=== PATIENT | male | born 1995 | race Caucasian/White ===

== ENCOUNTER 2018-07-05 16:03 | Inpatient (IN) ==
[2018-07-05] MEDS ORDERED: fentaNYL Citrate Inj 100 MCG/2 ML Ampul ONE ×2 (16:05→19:33)
[2018-07-05] MEDS ORDERED: ceFAZolin 2 GM Premix Inj 2 GM/50 ML PIGGYBACK IV.SIG ONE ×2 (16:05→17:32)
[2018-07-05] MEDS ORDERED: Diphtheria/Tetanus/Pertussis Vaccine Inj 0.5 ML Syringe IM ONE (16:06)
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
[2018-07-05 16:35] LABS: Baso # (Auto) 0.1 th/mm3 (0.0-0.2); Baso % (Auto) 0.8 % (0.0-2.0); Eos # (Auto) 0.1 th/mm3 (0.0-0.4); Eos % (Auto) 0.7 % (0.0-4.0); Hematocrit 44.9 % (39.0-51.0); Hemoglobin 15.8 gm/dL (13.0-17.0); Lymph # (Auto) 2.4 th/mm3 (1.0-4.8); Lymph % (Auto) 32.2 % (9.0-44.0); Mean Corpuscular HGB Conc 35.3 % (32.0-36.0); Mean Corpuscular Hemoglobin 30.4 pg (27.0-34.0); Mean Platelet Volume 9.8 fL (7.0-11.0); Mono # (Auto) 1.1 th/mm3 (0.0-0.9); Mono % (Auto) 14.2 % (0.0-8.0); Neut # (Auto) 3.9 th/mm3 (1.8-7.7); Neut % (Auto) 52.1 % (16.0-70.0); Platelet Count 250 th/mm3 (150-450); Red Blood Count 5.22 mil/mm3 (4.50-5.90); Red Cell Distribution Width 13.7 % (11.6-17.2); White Blood Count 7.5 th/mm3 (4.0-11.0)
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
[2018-07-05 16:44] LABS: Activated Partial Thrombo Time 24.4 sec (24.3-30.1); INR 1.2 Ratio
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
[2018-07-05 17:29] LABS: ABG Base Excess -1.1 mmol/L (-2-2); ABG PCO2 33 mmHg (38-42); ABG PO2 234 mmHG (61-120)
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
[2018-07-05 17:37] LABS: Baso % (Auto) 0.3 % (0.0-2.0); Eos % (Auto) 0.2 % (0.0-4.0); Hematocrit 40.3 % (39.0-51.0); Hemoglobin 13.6 gm/dL (13.0-17.0); Lymph # (Auto) 0.6 th/mm3 (1.0-4.8); Lymph % (Auto) 7.9 % (9.0-44.0); Mean Corpuscular HGB Conc 33.9 % (32.0-36.0); Mean Corpuscular Hemoglobin 29.2 pg (27.0-34.0); Mean Corpuscular Volume 86.3 fL (80.0-100.0); Mean Platelet Volume 9.3 fL (7.0-11.0); Mono # (Auto) 0.6 th/mm3 (0.0-0.9); Mono % (Auto) 8.1 % (0.0-8.0); Neut # (Auto) 6.4 th/mm3 (1.8-7.7); Neut % (Auto) 83.5 % (16.0-70.0); Platelet Count 157 th/mm3 (150-450); Red Blood Count 4.67 mil/mm3 (4.50-5.90); Red Cell Distribution Width 13.4 % (11.6-17.2); White Blood Count 7.7 th/mm3 (4.0-11.0)
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
[2018-07-05] MEDS ORDERED: HYDROmorphone PF Inj 0.5 MG/0.5 ML Syringe IV.PUSH PRN (18:30)
[2018-07-05] MEDS ORDERED: Neomycin/Polymyxin G.U. Irrigant 1 ML Ampul ONE (18:59)
[2018-07-05] MEDS ORDERED: Dexmedetomidine Inj 200 MCG/2 ML Vial ONE (19:32)
[2018-07-05] MEDS ORDERED: Sugammadex Inj 200 MG/2 ML Vial IV.PUSH ONE (20:11)
--- NOTE | 2018-07-05 20:51 | P.OP ---
- Preoperative Diagnosis (1) Amputation of left ring finger (2) Closed fracture of proximal phalanx of left ring finger (3) Displaced fracture of shaft of fourth metacarpal bone, left hand, initial encounter for closed fracture (4) Displaced fracture of neck of fifth metacarpal bone, left hand, initial encounter for closed fracture - Postoperative Diagnosis (1) Amputation of left ring finger (2) Closed fracture of proximal phalanx of left ring finger (3) Displaced fracture of neck of fifth metacarpal bone, left hand, initial encounter for closed fracture (4) Displaced fracture of shaft of fourth metacarpal bone, left hand, initial encounter for closed fracture Date of procedure: 07/05/18 Procedure: wash debridement revision amputation through middle phalanx left ring finger closed reduction and internal fixation proximal phalanx left ring finger open reduction internal fixation fourth metacarpal shaft left hand closed reduction and internal fixation fracture fifth metacarpal neck left hand Anesthesia: GETA Surgeon: Neo Valdivia MD Estimated blood loss (mL): 10 Tourniquet time (min): 84 Pathology: none sent Operation and Findings: amputation though distal part of the middle phalanx/DIP joint with open wound left ring finger comminuted displaced fracture proximal phalanx left ring finger displaced fourth metacarpal shaft fracture left hand displaced fifth metacarpal neck fracture left hand
[2018-07-05] MEDS ORDERED: Morphine Inj 4 MG/ML Vial ONE (21:02)
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
[2018-07-05] MEDS: Docusate Sodium 100 MG Capsule PO SCH (22:15)
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
[2018-07-05] MEDS ORDERED: *morphine SULFATE 4 MG/ML PERIprocedure ONLY ONE (22:33)
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
[2018-07-06] MEDS ORDERED: Chlorhexidine Gluconate 2% 1 Pack (2 Cloths) TOPICAL ONE (00:45)
[2018-07-06] MEDS ORDERED: Sodium Chlor 0.9% Inj 500 ML IV.SIG SCH (01:00)
[2018-07-06] MEDS: HYDROmorphone PF Inj 2 MG/ML Vial IV.PUSH PRN ×5 (02:02→19:53)
[2018-07-06] MEDS ORDERED: Chlorhexidine Gluconate 2% 1 Pack (2 Cloths) TOPICAL SCH (04:00)
[2018-07-06] MEDS ORDERED: Chlorhexidine Gluconate 2% 1 Pack (2 Cloths) TOPICAL PRN (04:00)
[2018-07-06 05:59] LABS: Baso % (Auto) 0.1 % (0.0-2.0); Hematocrit 38.4 % (39.0-51.0); Hemoglobin 12.8 gm/dL (13.0-17.0); Lymph # (Auto) 0.7 th/mm3 (1.0-4.8); Lymph % (Auto) 6.2 % (9.0-44.0); Mean Corpuscular HGB Conc 33.3 % (32.0-36.0); Mean Corpuscular Hemoglobin 29.3 pg (27.0-34.0); Mean Platelet Volume 9.6 fL (7.0-11.0); Mono # (Auto) 1.4 th/mm3 (0.0-0.9); Neut # (Auto) 8.4 th/mm3 (1.8-7.7); Neut % (Auto) 80.7 % (16.0-70.0); Platelet Count 187 th/mm3 (150-450); Red Blood Count 4.36 mil/mm3 (4.50-5.90); Red Cell Distribution Width 13.5 % (11.6-17.2); White Blood Count 10.5 th/mm3 (4.0-11.0)
[2018-07-06 06:21] LABS: Anion Gap 7 meq/L (5-15); Blood Urea Nitrogen 6 mg/dL (7-18); Calcium 7.3 mg/dL (8.5-10.1); Carbon Dioxide 27.1 meq/L (21.0-32.0); Chloride 106 meq/L (98-107); Glomerular Filtration Rate Greater Than 89 mL/min (>89); Glucose,Random 129 mg/dL (74-106); Potassium 3.6 meq/L (3.5-5.1); Sodium 140 meq/L (136-145)
[2018-07-06 06:33] LABS: Creatine Kinase 1299 U/L (39-308); Total Protein 5.8 g/dL (6.4-8.2)
[2018-07-06 06:53] LABS: CKMB Percent 0.2 % (0.0-4.0); Creatine Kinase MB 2.3 ng/mL (0.5-3.6)
--- NOTE | 2018-07-06 07:36 | P.CONOP ---
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 for repeat irrigation and debridement. Patient will likely need multiple surgeries. He may need skin grafting as well. The risk and benefits of surgery were discussed in depth with patient. Informed consent was obtained. Operative site was marked. A mid-level provider in my office (nurse practitioner or physician junior assistant manager) may see this patient on follow-up visits and continue to implement the objectives of this plan including: Starting or adjusting medications, injections , cast application, orthotics, brace application, physical therapy, radiological studies (including x-ray, MRI, CT, ultrasound, bone scan), vascular studies, neurologic studies, specialist consultation, and proceeding with surgical management, as appropriate. <Shemar Garcia - Last Filed: 07/06/18 12:52>
[2018-07-06] MEDS: Docusate Sodium 100 MG Capsule PO SCH (08:52)
[2018-07-06] MEDS ORDERED: Morphine Sulfate Inj 2 MG/ML Vial ONE (11:47)
[2018-07-06] MEDS ORDERED: Lidocaine PF 1% Inj 5 ML Syringe OTHER ONE (12:15)
[2018-07-06] MEDS ORDERED: Esmolol Bolus Inj 100 MG/10 ML Vial IV.PUSH ONE (12:15)
[2018-07-06] MEDS ORDERED: Morphine Inj 4 MG/ML Vial IV.PUSH PRN (12:54)
[2018-07-06] MEDS ORDERED: Post-op Orders (for Pharmacy) OTHER STA (12:54)
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
[2018-07-06] MEDS ORDERED: Morphine Inj 4 MG/ML Vial ONE (13:21)
[2018-07-06] MEDS ORDERED: fentaNYL Citrate Inj 100 MCG/2 ML Ampul ONE (13:21)
--- NOTE | 2018-07-06 13:31 | P.PNOP ---
Subjective Interval history: POD 0 s/p I&D with vac application left thigh wound stable in PACU Physical Exam Vital signs: Vital Signs 07/05/18 16:24 07/05/18 17:10 07/05/18 20:58 Temperature 98.2 F 97.8 F Pulse Rate 100 H 98 H Respiratory Rate 22 19 Blood Pressure 126/80 Pulse Oximetry 100 100 100 07/05/18 21:00 07/05/18 21:15 07/05/18 21:30 Temperature Pulse Rate 89 80 76 Respiratory Rate 14 13 15 Blood Pressure 109/54 L 113/57 L 118/56 L Pulse Oximetry 100 100 100 07/05/18 21:45 07/05/18 22:00 07/05/18 22:15 Temperature Pulse Rate 78 79 97 H Respiratory Rate 15 13 14 Blood Pressure 117/55 L 117/58 L 115/57 L Pulse Oximetry 100 100 100 07/05/18 22:30 07/05/18 22:38 07/05/18 22:45 Temperature Pulse Rate 89 94 H Respiratory Rate 16 16 14 Blood Pressure 114/55 L 119/56 L Pulse Oximetry 97 96 07/05/18 23:13 07/06/18 00:00 07/06/18 02:32 Temperature 98.5 F Pulse Rate 97 H 86 Respiratory Rate 17 16 Blood Pressure 115/58 L Pulse Oximetry 98 07/06/18 03:09 07/06/18 04:00 07/06/18 07:53 Temperature 98.1 F Pulse Rate 81 Respiratory Rate 17 18 18 Blood Pressure 128/59 L Pulse Oximetry 100 07/06/18 08:00 07/06/18 09:16 07/06/18 10:26 Temperature 98.1 F Pulse Rate 114 H Respiratory Rate 16 18 Blood Pressure 123/56 L Pulse Oximetry 93 L 96 Intake & Output 07/05/18 07/06/18 07/06/18 18:59 06:59 18:59 Intake Total 50 / 50 5150 / 5150 2100 / 2100 Output Total 1850 / 1850 60 / 60 Balance 50 / 50 3300 / 3300 2039 / 2039 Weight 67 kg 67.9 kg Intake: IV 50 / 50 100 / 100 1100 / 1100 LR 1000 mL Inj 1,000 ML @ 100 1000 / 1000 mls/hr IV.CONT .Q10H [facility] Rx#: [id number] Ancef 2 GM Premix Inj 2 gm In 50 / 50 50 ml @ 100 mls/hr IV.SIG ONCE ONE Rx#:[id number] Ancef Inj 1,000 MG In NS Inj 100 / 100 100 / 100 100 ML @ 200 mls/hr IV.SIG Q8H [facility] Rx#:[id number] Oral 50 / 50 Anesthesia Amount 5000 / 5000 1000 / 1000 Output: Estimated Blood Loss 150 / 150 10 / 10 Urine Amount (Catheter) 1700 / 1700 50 / 50 Indwelling Urethral Catheter 1700 / 1700 50 / 50 Other: Date of Last Bowel Movement 07/04/18 Narrative: LLE: +vac. good seal. nvi distally - Urinary Catheter Management Indwelling Urethral Catheter Cath placed during this visit: yes Reason for continuing: Hourly intake/output Insertion date: 07/05/18 Insertion time: 17:00 Results - Labs CBC & Chem 7: 07/06/18 05:10 07/06/18 05:10 Laboratory Results - last 24 hr 07/05/18 07/05/18 07/05/18 16:07 16:07 16:07 WBC 7.5 RBC 5.22 Hgb 15.8 POC Hgb (Calc) 15.3 Hct 44.9 POC Hct 45.0 MCV 86.0 MCH 30.4 MCHC 35.3 RDW 13.7 Plt Count 250 MPV 9.8 Neut % (Auto) 52.1 Lymph % (Auto) 32.2 [place]oke % (Auto) 14.2 H Eos % (Auto) 0.7 Baso % (Auto) 0.8 Neut # (Auto) 3.9 Lymph # (Auto) 2.4 [place] # (Auto) 1.1 H Eos # (Auto) 0.1 Baso # (Auto) 0.1 WBC Differential . Differential Comment Auto diff final PT 12.0 H INR 1.2 APTT 24.4 Puncture Site Patient Temperature O2 Saturation ABG pH ABG pCO2 ABG pO2 ABG HCO3 ABG O2 Content ABG Base Excess ABG Methemoglobin Hemoglobin Carboxyhemoglobin O2 Delivery Device Critical Value POC Sodium 142 Sodium POC Potassium 4.5 Potassium POC Chloride 106 Chloride Carbon Dioxide Anion Gap POC BUN 12 BUN Creatinine POC Creatinine 0.8 Estimated GFR POC Glucose 133 H Random Glucose Calcium Prot Corrected Calcium Total Creatine Kinase CK-MB (CK-2) CK-MB (CK-2) % Total Protein Blood Type Antibody Screen MTS Gel Crossmatch Bld Prod Order Comment 07/05/18 07/05/18 07/05/18 16:07 17:12 17:15 WBC 7.7 RBC 4.67 Hgb 13.6 D POC Hgb (Calc) Hct 40.3 POC Hct MCV 86.3 MCH 29.2 MCHC 33.9 RDW 13.4 Plt Count 157 D MPV 9.3 Neut % (Auto) 83.5 H Lymph % (Auto) 7.9 L [place] % (Auto) 8.1 H Eos % (Auto) 0.2 Baso % (Auto) 0.3 Neut # (Auto) 6.4 Lymph # (Auto) 0.6 L [place] # (Auto) 0.6 Eos # (Auto) 0.0 Baso # (Auto) 0.0 WBC Differential . Differential Comment Auto diff final PT INR APTT Puncture Site Not Reportable Patient Temperature 98.6 O2 Saturation 97 ABG pH 7.45 H ABG pCO2 33 L ABG pO2 234 H ABG HCO3 22 ABG O2 Content 19.0 ABG Base Excess -1.1 ABG Methemoglobin 1.4 Hemoglobin 13.5 Carboxyhemoglobin 0.8 O2 Delivery Device O.r. abg Critical Value No POC Sodium Sodium POC Potassium Potassium POC Chloride Chloride Carbon Dioxide Anion Gap POC BUN BUN Creatinine POC Creatinine Estimated GFR POC Glucose Random Glucose Calcium Prot Corrected Calcium Total Creatine Kinase CK-MB (CK-2) CK-MB (CK-2) % Total Protein Blood Type O Positive Antibody Screen Negative MTS Gel Crossmatch Bld Prod Order Comment 07/05/18 07/06/18 07/06/18 17:21 05:10 05:10 WBC 10.5 RBC 4.36 L Hgb 12.8 L POC Hgb (Calc) Hct 38.4 L POC Hct MCV 88.0 MCH 29.3 MCHC 33.3 RDW 13.5 Plt Count 187 MPV 9.6 Neut % (Auto) 80.7 H Lymph % (Auto) 6.2 L [place] % (Auto) 13.0 H Eos % (Auto) 0.0 Baso % (Auto) 0.1 Neut # (Auto) 8.4 H Lymph # (Auto) 0.7 L [place] # (Auto) 1.4 H Eos # (Auto) 0.0 Baso # (Auto) 0.0 WBC Differential . Differential Comment Auto diff final PT INR APTT Puncture Site Patient Temperature O2 Saturation ABG pH ABG pCO2 ABG pO2 ABG HCO3 ABG O2 Content ABG Base Excess ABG Methemoglobin Hemoglobin Carboxyhemoglobin O2 Delivery Device Critical Value POC Sodium Sodium 140 POC Potassium Potassium 3.6 POC Chloride Chloride 106 Carbon Dioxide 27.1 Anion Gap 7 POC BUN BUN 6 L Creatinine 0.71 POC Creatinine Estimated GFR Greater than 89 POC Glucose Random Glucose 129 H Calcium 7.3 L* Prot Corrected Calcium 8.0 L Total Creatine Kinase 1299 H CK-MB (CK-2) 2.3 CK-MB (CK-2) % 0.2 Total Protein 5.8 L Blood Type Antibody Screen MTS Gel Crossmatch See Detail Bld Prod Order Comment - Imaging Impressions Chest X-Ray 07/05/18 16:06 CONCLUSION: Negative examination. No evidence of acute cardiopulmonary process or traumatic bony injury. Pelvis X-Ray 07/05/18 16:06 CONCLUSION: No acute bony abnormality. Subcutaneous air in the left inguinal and proximal thigh region. Femur X-Ray 07/05/18 16:07 CONCLUSION: Tibia/Fibula X-Ray 07/05/18 16:07 CONCLUSION: No acute fracture of the tibia or fibula. Abdomen/Pelvis CT 07/05/18 16:08 CONCLUSION: 1. Large soft tissue contusion involving the left upper thigh with extension superiorly and medially to the base of the perineum. 2. No acute fracture identified. 3. No findings to indicate intra-abdominal trauma. Cervical Spine CT 07/05/18 16:08 CONCLUSION: 1. No acute fracture of the cervical spine identified. Chest CT 07/05/18 16:08 CONCLUSION: 1. Negative for acute traumatic injury within the thorax. Face CT 07/05/18 16:08 CONCLUSION: 1. No evidence of acute soft tissue or bony trauma. 2. Mild mucosal thickening in the paranasal sinuses. Head CT 07/05/18 16:08 CONCLUSION: 1. No acute intracranial abnormality. . Lumbar Spine CT 07/05/18 16:08 CONCLUSION: Negative CT Lumbar Spine with contrast. No evidence of acute soft tissue or bony trauma. Thoracic Spine CT 07/05/18 16:08 CONCLUSION: 1. Negative CT Thoracic Spine with contrast. 2. No evidence of acute bony or soft tissue trauma Aorta w/Runoff CTA 07/05/18 16:15 CONCLUSION: 1. Examination of the left leg demonstrates a large soft tissue defect however I see no evidence of vascular injury involving the superficial femoral artery throughout this area. The inflow and runoff to the left lower extremity is adequate. 2. The inflow and runoff to the right lower extremity is within normal limits. Hand X-Ray 07/05/18 16:15 CONCLUSION: Fractures of the fourth and fifth metacarpals and fourth finger as above with questionable partial amputation fourth finger. Assessment and Plan - Problem List (1) Laceration Status: Acute (2) Fracture of hand Code(s): S62.90XA - Unspecified fracture of unspecified wrist and hand, initial encounter for closed fracture Status: Acute (3) Amputation of left ring finger Code(s): S68.115A - Complete traumatic metacarpophalangeal amputation of left ring finger, initial encounter Status: Acute (4) Closed fracture of proximal phalanx of left ring finger Code(s): S62.615A - Displaced fracture of proximal phalanx of left ring finger, initial encounter for closed fracture Status: Acute (5) Displaced fracture of shaft of fourth metacarpal bone, left hand, initial encounter for closed fracture Code(s): S62.325A - Displaced fracture of shaft of fourth metacarpal bone, left hand, initial encounter for closed fracture Status: Acute (6) Displaced fracture of neck of fifth metacarpal bone, left hand, initial encounter for closed fracture Code(s): S62.337A - Displaced fracture of neck of fifth metacarpal bone, left hand, initial encounter for closed fracture Status: Acute - Assessment and Plan 1) traumatic Left Thigh Laceration s/p I&D with vac application - POD 0 -NWB -maintain vac at all times -VAC SETTINGS: 125mmHg, 3:1 -will plan for repeat I&D and possible wound closure next week
[2018-07-06] MEDS ORDERED: *morphine SULFATE 4 MG/ML PERIprocedure ONLY ONE ×3 (13:43→14:06)
[2018-07-06] MEDS ORDERED: Gentamicin/NS 80 mg Premix 100 ML IV.SIG SCH ×2 (14:30→15:00)
[2018-07-06] MEDS: ceFAZolin 2 GM/NS 100 ML IV; Q8H IV.SIG SCH ×2 (15:00)
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
[2018-07-06] MEDS ORDERED: ceFAZolin Inj 2,000 MG in Sodium Chlor 0.9% Inj 80 ML IV.SIG SCH (16:00)
--- NOTE | 2018-07-06 16:41 | P.PN ---
Subjective Interval history: complaint with limb elevation complains of pain denies any numbness Physical Exam Vital signs: Vital Signs 07/05/18 17:10 07/05/18 20:58 07/05/18 21:00 Temperature 98.2 F 97.8 F Pulse Rate 100 H 98 H 89 Respiratory Rate 22 19 14 Blood Pressure 126/80 109/54 L Pulse Oximetry 100 100 100 07/05/18 21:15 07/05/18 21:30 07/05/18 21:45 Temperature Pulse Rate 80 76 78 Respiratory Rate 13 15 15 Blood Pressure 113/57 L 118/56 L 117/55 L Pulse Oximetry 100 100 100 07/05/18 22:00 07/05/18 22:15 07/05/18 22:30 Temperature Pulse Rate 79 97 H 89 Respiratory Rate 13 14 16 Blood Pressure 117/58 L 115/57 L 114/55 L Pulse Oximetry 100 100 97 07/05/18 22:38 07/05/18 22:45 07/05/18 23:13 Temperature Pulse Rate 94 H 97 H Respiratory Rate 16 14 Blood Pressure 119/56 L Pulse Oximetry 96 07/06/18 00:00 07/06/18 02:32 07/06/18 03:09 Temperature 98.5 F Pulse Rate 86 Respiratory Rate 17 16 17 Blood Pressure 115/58 L Pulse Oximetry 98 07/06/18 04:00 07/06/18 07:53 07/06/18 08:00 Temperature 98.1 F 98.1 F Pulse Rate 81 114 H Respiratory Rate 18 18 16 Blood Pressure 128/59 L 123/56 L Pulse Oximetry 100 93 L 07/06/18 09:16 07/06/18 10:26 07/06/18 13:20 Temperature 99 F Pulse Rate 117 H Respiratory Rate 18 17 Blood Pressure 121/71 Pulse Oximetry 96 100 07/06/18 13:30 07/06/18 13:45 07/06/18 14:00 Temperature Pulse Rate 110 H 111 H 105 H Respiratory Rate 13 14 14 Blood Pressure 139/82 157/87 H 159/91 H Pulse Oximetry 100 100 100 07/06/18 14:10 07/06/18 14:30 07/06/18 15:01 Temperature 97.6 F 97.4 F L Pulse Rate 103 H 117 H Respiratory Rate 14 16 18 Blood Pressure 155/86 H 176/98 H Pulse Oximetry 100 100 07/06/18 16:00 Temperature 97.8 F Pulse Rate 118 H Respiratory Rate 16 Blood Pressure 165/81 H Pulse Oximetry 98 Intake & Output 07/05/18 07/06/18 07/06/18 18:59 06:59 18:59 Intake Total 50 / 50 5150 / 5150 2210 / 2210 Output Total 1850 / 1850 215 / 215 Balance 50 / 50 3300 / 3300 1994 Weight 67 kg 67.9 kg Intake: IV 50 / 50 100 / 100 1200 / 1200 LR 1000 mL Inj 1,000 ML @ 100 1000 / 1000 mls/hr IV.CONT .Q10H ABILIO Rx#: [id number] Ancef 2 GM Premix Inj 2 gm In 50 / 50 50 ml @ 100 mls/hr IV.SIG ONCE ONE Rx#:[id number] Ancef Inj 1,000 MG In NS Inj 100 / 100 100 / 100 100 ML @ 200 mls/hr IV.SIG Q8H ABILIO Rx#:[id number] Ancef Inj 2,000 MG In NS Inj 80 100 / 100 ML @ 200 mls/hr IV.SIG Q8H ABILIO Rx#:[id number] Oral 50 / 50 10 / 10 Anesthesia Amount 5000 / 5000 1000 / 1000 Output: Estimated Blood Loss 150 / 150 10 / 10 Urine Amount (Catheter) 1700 / 1700 200 / 200 Indwelling Urethral Catheter 1700 / 1700 200 / 200 Wound Vac Amount 5 / 5 Left Thigh 5 / 5 Other: Date of Last Bowel Movement 07/04/18 Narrative: left upper extremity: dressing and splint in place intact distal circulation and sensation able to wiggle his fingers, associated with pain - Urinary Catheter Management Indwelling Urethral Catheter Cath placed during this visit: yes Reason for continuing: Hourly intake/output Insertion date: 07/05/18 Insertion time: 17:00 Results - Labs CBC & Chem 7: 07/06/18 05:10 07/06/18 05:10 Laboratory Results - last 24 hr 07/05/18 07/05/18 07/05/18 16:07 16:07 16:07 WBC RBC Hgb POC Hgb (Calc) 15.3 Hct POC Hct 45.0 MCV MCH MCHC RDW Plt Count MPV Neut % (Auto) Lymph % (Auto) [place] % (Auto) Eos % (Auto) Baso % (Auto) Neut # (Auto) Lymph # (Auto) [place] # (Auto) Eos # (Auto) Baso # (Auto) WBC Differential Differential Comment PT 12.0 H INR 1.2 APTT 24.4 Puncture Site Patient Temperature O2 Saturation ABG pH ABG pCO2 ABG pO2 ABG HCO3 ABG O2 Content ABG Base Excess ABG Methemoglobin Hemoglobin Carboxyhemoglobin O2 Delivery Device Critical Value POC Sodium 142 Sodium POC Potassium 4.5 Potassium POC Chloride 106 Chloride Carbon Dioxide Anion Gap POC BUN 12 BUN Creatinine POC Creatinine 0.8 Estimated GFR POC Glucose 133 H Random Glucose Calcium Prot Corrected Calcium Total Creatine Kinase CK-MB (CK-2) CK-MB (CK-2) % Total Protein Blood Type O Positive Antibody Screen Negative MTS Gel Crossmatch Bld Prod Order Comment 07/05/18 07/05/18 07/05/18 17:12 17:15 17:21 WBC 7.7 RBC 4.67 Hgb 13.6 D POC Hgb (Calc) Hct 40.3 POC Hct MCV 86.3 MCH 29.2 MCHC 33.9 RDW 13.4 Plt Count 157 D MPV 9.3 Neut % (Auto) 83.5 H Lymph % (Auto) 7.9 L [place] % (Auto) 8.1 H Eos % (Auto) 0.2 Baso % (Auto) 0.3 Neut # (Auto) 6.4 Lymph # (Auto) 0.6 L [place] # (Auto) 0.6 Eos # (Auto) 0.0 Baso # (Auto) 0.0 WBC Differential . Differential Comment Auto diff final PT INR APTT Puncture Site Not Reportable Patient Temperature 98.6 O2 Saturation 97 ABG pH 7.45 H ABG pCO2 33 L ABG pO2 234 H ABG HCO3 22 ABG O2 Content 19.0 ABG Base Excess -1.1 ABG Methemoglobin 1.4 Hemoglobin 13.5 Carboxyhemoglobin 0.8 O2 Delivery Device O.r. abg Critical Value No POC Sodium Sodium POC Potassium Potassium POC Chloride Chloride Carbon Dioxide Anion Gap POC BUN BUN Creatinine POC Creatinine Estimated GFR POC Glucose Random Glucose Calcium Prot Corrected Calcium Total Creatine Kinase CK-MB (CK-2) CK-MB (CK-2) % Total Protein Blood Type Antibody Screen MTS Gel Crossmatch See Detail Bld Prod Order Comment 07/06/18 07/06/18 05:10 05:10 WBC 10.5 RBC 4.36 L Hgb 12.8 L POC Hgb (Calc) Hct 38.4 L POC Hct MCV 88.0 MCH 29.3 MCHC 33.3 RDW 13.5 Plt Count 187 MPV 9.6 Neut % (Auto) 80.7 H Lymph % (Auto) 6.2 L [place] % (Auto) 13.0 H Eos % (Auto) 0.0 Baso % (Auto) 0.1 Neut # (Auto) 8.4 H Lymph # (Auto) 0.7 L [place] # (Auto) 1.4 H Eos # (Auto) 0.0 Baso # (Auto) 0.0 WBC Differential . Differential Comment Auto diff final PT INR APTT Puncture Site Patient Temperature O2 Saturation ABG pH ABG pCO2 ABG pO2 ABG HCO3 ABG O2 Content ABG Base Excess ABG Methemoglobin Hemoglobin Carboxyhemoglobin O2 Delivery Device Critical Value POC Sodium Sodium 140 POC Potassium Potassium 3.6 POC Chloride Chloride 106 Carbon Dioxide 27.1 Anion Gap 7 POC BUN BUN 6 L Creatinine 0.71 POC Creatinine Estimated GFR Greater than 89 POC Glucose Random Glucose 129 H Calcium 7.3 L* Prot Corrected Calcium 8.0 L Total Creatine Kinase 1299 H CK-MB (CK-2) 2.3 CK-MB (CK-2) % 0.2 Total Protein 5.8 L Blood Type Antibody Screen MTS Gel Crossmatch Bld Prod Order Comment - Imaging Impressions Chest X-Ray 07/05/18 16:06 CONCLUSION: Negative examination. No evidence of acute cardiopulmonary process or traumatic bony injury. Pelvis X-Ray 07/05/18 16:06 CONCLUSION: No acute bony abnormality. Subcutaneous air in the left inguinal and proximal thigh region. Femur X-Ray 07/05/18 16:07 CONCLUSION: Tibia/Fibula X-Ray 07/05/18 16:07 CONCLUSION: No acute fracture of the tibia or fibula. Abdomen/Pelvis CT 07/05/18 16:08 CONCLUSION: 1. Large soft tissue contusion involving the left upper thigh with extension superiorly and medially to the base of the perineum. 2. No acute fracture identified. 3. No findings to indicate intra-abdominal trauma. Cervical Spine CT 07/05/18 16:08 CONCLUSION: 1. No acute fracture of the cervical spine identified. Chest CT 09/27/18 16:08 CONCLUSION: 1. Negative for acute traumatic injury within the thorax. Face CT 07/05/18 16:08 CONCLUSION: 1. No evidence of acute soft tissue or bony trauma. 2. Mild mucosal thickening in the paranasal sinuses. Lumbar Spine CT 07/05/18 16:08 CONCLUSION: Negative CT Lumbar Spine with contrast. No evidence of acute soft tissue or bony trauma. Thoracic Spine CT 07/05/18 16:08 CONCLUSION: 1. Negative CT Thoracic Spine with contrast. 2. No evidence of acute bony or soft tissue trauma Aorta w/Runoff CTA 07/05/18 16:15 CONCLUSION: 1. Examination of the left leg demonstrates a large soft tissue defect however I see no evidence of vascular injury involving the superficial femoral artery throughout this area. The inflow and runoff to the left lower extremity is adequate. 2. The inflow and runoff to the right lower extremity is within normal limits. Hand X-Ray 07/05/18 16:15 CONCLUSION: Fractures of the fourth and fifth metacarpals and fourth finger as above with questionable partial amputation fourth finger. Assessment and Plan - Assessment (1) Amputation of left ring finger Code(s): S68.115A - Complete traumatic metacarpophalangeal amputation of left ring finger, initial encounter Status: Acute (2) Displaced fracture of shaft of fourth metacarpal bone, left hand, initial encounter for closed fracture Code(s): S62.325A - Displaced fracture of shaft of fourth metacarpal bone, left hand, initial encounter for closed fracture Status: Acute (3) Displaced fracture of neck of fifth metacarpal bone, left hand, initial encounter for closed fracture Code(s): S62.337A - Displaced fracture of neck of fifth metacarpal bone, left hand, initial encounter for closed fracture Status: Acute - Plan 22 year old male s/p revision amputation left ring finger, CRIF proximal phalanx left ring finger, ORIF 4th metacarpal shaft fracture, CRIF fifth metacarpal neck left hand Plan: continue with strict limb elevation can move his thumb, index and middle fingers watch for compartment syndrome, had a discussion with nurse will change dressing tomorrow.
[2018-07-06] MEDS: Gabapentin 100 MG Capsule PO SCH (18:05)
[2018-07-06] MEDS: Gentamicin/NS 80 mg Premix 100 ML IV.SIG SCH (19:56)
[2018-07-06] MEDS: Senna/Docusate Sodium 8.6/50 MG Tablet PO SCH (20:22)
[2018-07-06] MEDS: Enoxaparin Inj 40 MG/0.4 ML Syringe SQ SCH (21:03)
[2018-07-07] MEDS: ceFAZolin 2 GM/NS 100 ML IV; Q8H IV.SIG SCH ×8 (00:25→23:19)
[2018-07-07] MEDS: Gentamicin/NS 80 mg Premix 100 ML IV.SIG SCH ×2 (04:12→11:57)
[2018-07-07 04:37] LABS: Baso % (Auto) 0.2 % (0.0-2.0); Eos % (Auto) 0.2 % (0.0-4.0); Hematocrit 33.7 % (39.0-51.0); Hemoglobin 11.4 gm/dL (13.0-17.0); Lymph # (Auto) 1.4 th/mm3 (1.0-4.8); Lymph % (Auto) 15.3 % (9.0-44.0); Mean Corpuscular HGB Conc 33.8 % (32.0-36.0); Mean Corpuscular Hemoglobin 29.8 pg (27.0-34.0); Mean Corpuscular Volume 88.1 fL (80.0-100.0); Mean Platelet Volume 9.5 fL (7.0-11.0); Mono # (Auto) 1.4 th/mm3 (0.0-0.9); Mono % (Auto) 15.2 % (0.0-8.0); Neut # (Auto) 6.2 th/mm3 (1.8-7.7); Neut % (Auto) 69.1 % (16.0-70.0); Platelet Count 175 th/mm3 (150-450); Red Blood Count 3.83 mil/mm3 (4.50-5.90); Red Cell Distribution Width 13.6 % (11.6-17.2); White Blood Count 8.9 th/mm3 (4.0-11.0)
[2018-07-07 05:10] LABS: Anion Gap 7 meq/L (5-15); Blood Urea Nitrogen 5 mg/dL (7-18); Calcium 7.2 mg/dL (8.5-10.1); Carbon Dioxide 28.9 meq/L (21.0-32.0); Chloride 105 meq/L (98-107); Glomerular Filtration Rate Greater Than 89 mL/min (>89); Glucose,Random 112 mg/dL (74-106); Potassium 3.4 meq/L (3.5-5.1); Sodium 141 meq/L (136-145)
[2018-07-07 05:33] LABS: Total Protein 5.3 g/dL (6.4-8.2)
--- NOTE | 2018-07-07 07:42 | P.PNOP ---
Subjective Interval history: Doing well. Moderate to significant pain in left thigh and left leg. Father at bedside Physical Exam Vital signs: Vital Signs 07/06/18 07:53 07/06/18 08:00 07/06/18 09:16 Temperature 98.1 F Pulse Rate 114 H Respiratory Rate 18 16 18 Blood Pressure 123/56 L Pulse Oximetry 93 L 07/06/18 10:26 07/06/18 13:20 07/06/18 13:30 Temperature 99 F Pulse Rate 117 H 110 H Respiratory Rate 17 13 Blood Pressure 121/71 139/82 Pulse Oximetry 96 100 100 07/06/18 13:45 07/06/18 14:00 07/06/18 14:10 Temperature 97.6 F Pulse Rate 111 H 105 H 103 H Respiratory Rate 14 14 14 Blood Pressure 157/87 H 159/91 H 155/86 H Pulse Oximetry 100 100 100 07/06/18 14:30 07/06/18 15:01 07/06/18 16:00 Temperature 97.4 F L 97.8 F Pulse Rate 117 H 118 H Respiratory Rate 16 18 16 Blood Pressure 176/98 H 165/81 H Pulse Oximetry 100 98 07/06/18 16:32 07/06/18 18:35 07/06/18 20:00 Temperature 97.7 F Pulse Rate 110 H Respiratory Rate 18 18 17 Blood Pressure 158/66 H Pulse Oximetry 100 07/07/18 00:00 07/07/18 04:00 Temperature 97.7 F 98.9 F Pulse Rate 109 H 107 H Respiratory Rate 18 17 Blood Pressure 164/76 H 132/60 Pulse Oximetry 100 100 Intake & Output 07/06/18 07/07/18 07/07/18 18:59 06:59 18:59 Intake Total 2210 / 2210 1300 / 1300 Output Total 260 / 260 2725 / 2725 Balance 1950 / 1950 -1425 / -1425 Weight 67.9 kg Intake: IV 1200 / 1200 1300 / 1300 LR 1000 mL Inj 1,000 ML @ 100 1000 / 1000 1000 / 1000 mls/hr IV.CONT .Q10H ABILIO Rx#: [id number] Gentamicin/NS 80 mg Premix 100 200 / 200 ML @ 200 mls/hr IV.SIG Q8H ABILIO Rx#:[id number] Ancef Inj 1,000 MG In NS Inj 100 / 100 100 ML @ 200 mls/hr IV.SIG Q8H ABILIO Rx#:[id number] Ancef Inj 2,000 MG In NS Inj 80 100 / 100 100 / 100 ML @ 200 mls/hr IV.SIG Q8H ABILIO Rx#:[id number] Oral 10 / 10 Anesthesia Amount 1000 / 1000 Output: Urine 2725 / 2725 Estimated Blood Loss 10 10 Urine Amount (Catheter) 200 / 200 Indwelling Urethral Catheter 200 / 200 Wound Vac Amount 50 / 50 Left Thigh 50 / 50 Other: Mode Setting Left Thigh Continuous Narrative: Left arm in sling. Bandage over left leg with wound VAC. Sensation distally normal. Difficult to test motor examination due to pain - Urinary Catheter Management Indwelling Urethral Catheter Cath placed during this visit: yes Reason for continuing: Hourly intake/output Insertion date: 07/05/18 Insertion time: 17:00 Results - Labs CBC & Chem 7: 07/07/18 03:45 07/07/18 03:45 Laboratory Results - last 24 hr 07/07/18 07/07/18 03:45 03:45 WBC 8.9 RBC 3.83 L Hgb 11.4 L Hct 33.7 L MCV 88.1 MCH 29.8 MCHC 33.8 RDW 13.6 Plt Count 175 MPV 9.5 Neut % (Auto) 69.1 Lymph % (Auto) 15.3 [place] % (Auto) 15.2 H Eos % (Auto) 0.2 Baso % (Auto) 0.2 Neut # (Auto) 6.2 Lymph # (Auto) 1.4 [place] # (Auto) 1.4 H Eos # (Auto) 0.0 Baso # (Auto) 0.0 WBC Differential . Differential Comment Auto diff final Sodium 141 Potassium 3.4 L Chloride 105 Carbon Dioxide 28.9 Anion Gap 7 BUN 5 L Creatinine 0.69 Estimated GFR Greater than 89 Random Glucose 112 H Calcium 7.2 L* Prot Corrected Calcium 8.2 L Total Protein 5.3 L Assessment and Plan - Problem List (1) Laceration Status: Acute (2) Fracture of hand Code(s): S62.90XA - Unspecified fracture of unspecified wrist and hand, initial encounter for closed fracture Status: Acute (3) Amputation of left ring finger Code(s): S68.115A - Complete traumatic metacarpophalangeal amputation of left ring finger, initial encounter Status: Acute (4) Closed fracture of proximal phalanx of left ring finger Code(s): S62.615A - Displaced fracture of proximal phalanx of left ring finger, initial encounter for closed fracture Status: Acute (5) Displaced fracture of shaft of fourth metacarpal bone, left hand, initial encounter for closed fracture Code(s): S62.325A - Displaced fracture of shaft of fourth metacarpal bone, left hand, initial encounter for closed fracture Status: Acute (6) Displaced fracture of neck of fifth metacarpal bone, left hand, initial encounter for closed fracture Code(s): S62.337A - Displaced fracture of neck of fifth metacarpal bone, left hand, initial encounter for closed fracture Status: Acute - Assessment and Plan 1) traumatic Left Thigh Laceration s/p I&D with vac application - POD#1 -NWB -maintain vac at all times -VAC SETTINGS: 125mmHg, 3:1 -will plan for repeat I&D and possible wound closure next week WBC normal. All questions answered. Orthopedically stable
[2018-07-07] MEDS: HYDROmorphone PF Inj 2 MG/ML Vial IV.PUSH PRN ×3 (07:49→20:20)
[2018-07-07] MEDS: Gabapentin 100 MG Capsule PO SCH ×3 (08:44→17:42)
[2018-07-07] MEDS: Senna/Docusate Sodium 8.6/50 MG Tablet PO SCH ×2 (08:44→20:20)
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
[2018-07-07] MEDS: Enoxaparin Inj 40 MG/0.4 ML Syringe SQ SCH (20:19)
--- NOTE | 2018-07-08 07:59 | P.PNOP ---
Subjective Interval history: pt doing better this morning, does have continued left lower extremity pain, requesting pain meds from nurse Physical Exam Vital signs: Vital Signs 07/07/18 08:00 07/07/18 11:33 07/07/18 12:00 Temperature 98.6 F 98 F Pulse Rate 119 H 107 H Respiratory Rate 16 18 Blood Pressure 153/69 H 128/63 Pulse Oximetry 100 99 98 07/07/18 16:00 07/07/18 17:44 07/07/18 20:00 Temperature 97.8 F 97.7 F Pulse Rate 120 H 111 H Respiratory Rate 16 17 Blood Pressure 138/65 140/65 Pulse Oximetry 98 98 99 07/08/18 00:00 07/08/18 04:00 Temperature 98.8 F 98.3 F Pulse Rate 115 H 102 H Respiratory Rate 18 17 Blood Pressure 137/64 117/57 L Pulse Oximetry 98 96 Intake & Output 07/07/18 07/08/18 07/08/18 18:59 06:59 18:59 Intake Total 1750 / 1750 3980 / 3980 Output Total 3400 / 3400 1000 / 1000 Balance -1650 / -1650 2980 / 2980 Weight 67.897 kg Intake: IV 1750 / 1750 1100 / 1100 LR 1000 mL Inj 1,000 ML @ 100 1550 / 1550 1000 / 1000 mls/hr IV.CONT .Q10H ABILIO Rx#: [id number] Ancef Inj 2,000 MG In NS Inj 80 200 / 200 100 / 100 ML @ 200 mls/hr IV.SIG Q8H ABILIO Rx#:[id number] Oral 2880 / 2880 Output: Urine 1000 / 1000 Urine Amount (Catheter) 3400 / 3400 Indwelling Urethral Catheter 3400 / 3400 Other: Date of Last Bowel Movement 07/04/18 07/04/18 Weight On Admission 67.897 kg Narrative: also seen and examined by Geneva Farr charge nurse also in room left upper extremity in dressings and elevated from finger amputation that was performed by hand surgery left lower extremity, sensation intact distally, wound vac in place, no increased pain with passive range of motion of ankle - Urinary Catheter Management Indwelling Urethral Catheter Cath placed during this visit: yes Reason for continuing: Hourly intake/output Insertion date: 07/05/18 Insertion time: 17:00 Results - Labs CBC & Chem 7: 07/07/18 03:45 07/07/18 03:45 Laboratory Results - last 24 hr 07/05/18 07/07/18 17:21 12:07 Nasal Screen MRSA (PCR) Not detected MTS Gel Crossmatch See Detail Assessment and Plan - Problem List (1) Laceration Status: Acute (2) Fracture of hand Code(s): S62.90XA - Unspecified fracture of unspecified wrist and hand, initial encounter for closed fracture Status: Acute Qualifiers: Encounter type: initial encounter Fracture type: open Laterality: left Qualified Code(s): S62.92XB - Unspecified fracture of left wrist and hand, initial encounter for open fracture (3) Amputation of left ring finger Code(s): S68.115A - Complete traumatic metacarpophalangeal amputation of left ring finger, initial encounter Status: Acute (4) Closed fracture of proximal phalanx of left ring finger Code(s): S62.615A - Displaced fracture of proximal phalanx of left ring finger, initial encounter for closed fracture Status: Acute Qualifiers: Encounter type: initial encounter Fracture alignment: nondisplaced Qualified Code(s): S62.645A - Nondisplaced fracture of proximal phalanx of left ring finger, initial encounter for closed fracture (5) Displaced fracture of shaft of fourth metacarpal bone, left hand, initial encounter for closed fracture Code(s): S62.325A - Displaced fracture of shaft of fourth metacarpal bone, left hand, initial encounter for closed fracture Status: Acute (6) Displaced fracture of neck of fifth metacarpal bone, left hand, initial encounter for closed fracture Code(s): S62.337A - Displaced fracture of neck of fifth metacarpal bone, left hand, initial encounter for closed fracture Status: Acute - Assessment and Plan 1) traumatic Left Thigh Laceration s/p I&D with vac application - POD#2 -NWB -maintain vac at all times -VAC SETTINGS: 125mmHg, 3:1 -will plan for repeat I&D and possible wound closure next week Father that was here yesterday flew back to [place], mother coming in today- lives in [place] Orthopedically stable
[2018-07-08] MEDS: HYDROmorphone PF Inj 2 MG/ML Vial IV.PUSH PRN (08:22)
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
[2018-07-08] MEDS: ceFAZolin 2 GM/NS 100 ML IV; Q8H IV.SIG SCH ×2 (08:57)
[2018-07-08] MEDS: Gabapentin 100 MG Capsule PO SCH ×3 (10:11→17:41)
[2018-07-08] MEDS: Senna/Docusate Sodium 8.6/50 MG Tablet PO SCH ×2 (10:12→20:59)
[2018-07-08] MEDS: Enoxaparin Inj 40 MG/0.4 ML Syringe SQ SCH (20:58)
[2018-07-09] MEDS ORDERED: Metoprolol Tartrate 25 MG Tablet PO ONE (03:30)
[2018-07-09] MEDS ORDERED: Chlorhexidine Gluconate 2% 1 Pack (2 Cloths) TOPICAL ONE (03:30)
[2018-07-09] MEDS ORDERED: Sodium Chlor 0.9% Inj 500 ML IV.SIG SCH (04:00)
[2018-07-09 04:54] LABS: Baso % (Auto) 0.6 % (0.0-2.0); Eos # (Auto) 0.1 th/mm3 (0.0-0.4); Eos % (Auto) 1.6 % (0.0-4.0); Hematocrit 31.9 % (39.0-51.0); Hemoglobin 10.9 gm/dL (13.0-17.0); Lymph # (Auto) 2.4 th/mm3 (1.0-4.8); Lymph % (Auto) 36.9 % (9.0-44.0); Mean Corpuscular HGB Conc 34.1 % (32.0-36.0); Mean Corpuscular Hemoglobin 29.5 pg (27.0-34.0); Mean Corpuscular Volume 86.4 fL (80.0-100.0); Mean Platelet Volume 8.9 fL (7.0-11.0); Mono # (Auto) 0.7 th/mm3 (0.0-0.9); Mono % (Auto) 11.2 % (0.0-8.0); Neut # (Auto) 3.2 th/mm3 (1.8-7.7); Neut % (Auto) 49.7 % (16.0-70.0); Platelet Count 232 th/mm3 (150-450); Red Blood Count 3.69 mil/mm3 (4.50-5.90); Red Cell Distribution Width 13.4 % (11.6-17.2); White Blood Count 6.4 th/mm3 (4.0-11.0)
[2018-07-09 05:07] LABS: Anion Gap 8 meq/L (5-15); Blood Urea Nitrogen 7 mg/dL (7-18); Calcium 8.7 mg/dL (8.5-10.1); Chloride 101 meq/L (98-107); Glomerular Filtration Rate Greater Than 89 mL/min (>89); Glucose,Random 93 mg/dL (74-106); Potassium 3.4 meq/L (3.5-5.1); Sodium 140 meq/L (136-145)
--- NOTE | 2018-07-09 06:44 | P.PNOP ---
Subjective Interval history: Sitting in bed resting comfortably. Physical Exam Vital signs: Vital Signs 07/08/18 08:00 07/08/18 08:52 07/08/18 09:00 Temperature 98.6 F Pulse Rate 108 H 123 H Respiratory Rate 16 18 Blood Pressure 177/91 H Pulse Oximetry 98 07/08/18 12:00 07/08/18 20:00 07/09/18 00:00 Temperature 98.2 F 98.4 F 98.0 F Pulse Rate 80 83 100 H Respiratory Rate 16 20 18 Blood Pressure 175/81 H 153/74 H 123/65 Pulse Oximetry 99 99 99 Intake & Output 07/08/18 07/08/18 07/09/18 06:59 18:59 06:59 Intake Total 3980 / 3980 100 / 100 1000 / 1000 Output Total 1000 / 1000 1800 / 1800 Balance 2980 / 2980 -1700 / -1700 1000 / 1000 Intake: IV 1100 / 1100 100 / 100 1000 / 1000 LR 1000 mL Inj 1,000 ML @ 100 1000 / 1000 1000 / 1000 mls/hr IV.CONT .Q10H ABILIO Rx#: [id number] Ancef Inj 2,000 MG In NS Inj 80 100 / 100 100 / 100 ML @ 200 mls/hr IV.SIG Q8H ABILIO Rx#:[id number] Oral 2880 / 2880 Output: Urine 1000 / 1000 1800 / 1800 Other: Mode Setting Left Thigh Continuous Continuous Date of Last Bowel Movement 07/04/18 07/04/18 Narrative: Left lower extremity: Clean dry dressings intact with wound VAC in place. No pain with knee or ankle range of motion. Distally intact sensation with active dorsiflexion and plantarflexion of the foot - Urinary Catheter Management Indwelling Urethral Catheter Cath placed during this visit: yes Reason for continuing: Hourly intake/output Insertion date: 07/05/18 Insertion time: 17:00 Results - Labs CBC & Chem 7: 07/09/18 04:04 07/09/18 04:04 Laboratory Results - last 24 hr 07/05/18 07/09/18 07/09/18 17:21 04:04 04:04 WBC 6.4 RBC 3.69 L Hgb 10.9 L Hct 31.9 L MCV 86.4 MCH 29.5 MCHC 34.1 RDW 13.4 Plt Count 232 D MPV 8.9 Neut % (Auto) 49.7 Lymph % (Auto) 36.9 Lake % (Auto) 11.2 H Eos % (Auto) 1.6 Baso % (Auto) 0.6 Neut # (Auto) 3.2 Lymph # (Auto) 2.4 Lake # (Auto) 0.7 Eos # (Auto) 0.1 Baso # (Auto) 0.0 WBC Differential . Differential Comment Auto diff final Sodium 140 Potassium 3.4 L Chloride 101 Carbon Dioxide 31.0 Anion Gap 8 BUN 7 Creatinine 0.57 L Estimated GFR Greater than 89 Random Glucose 93 Calcium 8.7 MTS Gel Crossmatch See Detail Assessment and Plan - Problem List (1) Laceration Status: Acute (2) Fracture of hand Code(s): S62.90XA - Status: Acute Qualifiers: Encounter type: initial encounter Fracture type: open Laterality: left Qualified Code(s): S62.92XB - Unspecified fracture of left wrist and hand, initial encounter for open fracture (3) Amputation of left ring finger Code(s): S68.115A - Status: Acute (4) Closed fracture of proximal phalanx of left ring finger Code(s): S62.615A - Status: Acute Qualifiers: Encounter type: initial encounter Fracture alignment: nondisplaced Qualified Code(s): S62.645A - Nondisplaced fracture of proximal phalanx of left ring finger, initial encounter for closed fracture (5) Displaced fracture of shaft of fourth metacarpal bone, left hand, initial encounter for closed fracture Code(s): S62.325A - Status: Acute (6) Displaced fracture of neck of fifth metacarpal bone, left hand, initial encounter for closed fracture Code(s): S62.337A - Status: Acute - Assessment and Plan 1) traumatic Left Thigh Laceration s/p I&D with vac application - POD#3 -NWB N.p.o. -maintain vac at all times -VAC SETTINGS: 125mmHg, 3:1 -will plan for repeat I&D and possible wound closure today Father that was here yesterday flew back to [place], mother coming in today- lives in [place] Orthopedically stable
[2018-07-09] MEDS ORDERED: ceFAZolin 2 GM Premix Inj 2 GM/50 ML PIGGYBACK IV.SIG ONE (07:04)
[2018-07-09] MEDS ORDERED: Esmolol Bolus Inj 100 MG/10 ML Vial IV.PUSH ONE (07:30)
[2018-07-09] MEDS ORDERED: Lidocaine PF 1% Inj 5 ML Syringe OTHER ONE (07:30)
--- NOTE | 2018-07-09 07:35 | P.DCO ---
- Physical Therapy Order: Evaluate and treat, Improve ambulation, Strength and gait training - Home Health Nursing Order: Medical education, Signs/symptoms of disease process, Medication education-adverse effect, Nursing assessment with vital signs - Case Management Consult Yes - Certification I have seen patient Fernando Monsalve on 07/09/18. My clinical findings support the need for the requested home health care services because: Limited mobility due to disease progression, Patient has SOB, Deconditioned with increased weakness, High risk of falls I certify that my clinical findings support that this patient is homebound because: Post-op weakness, Unsteady gait/balance, Unsafe to leave home unassisted, Non- ambulatory: confined to bed or chair, Unable to use public transportation
[2018-07-09] MEDS ORDERED: Post-op Orders (for Pharmacy) OTHER STA (08:07)
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
[2018-07-09] MEDS: Gabapentin 100 MG Capsule PO SCH ×3 (08:16→17:51)
[2018-07-09] MEDS: Senna/Docusate Sodium 8.6/50 MG Tablet PO SCH ×2 (08:17→20:28)
[2018-07-09] MEDS ORDERED: *Meperidine Inj 25 MG/ML Vial PERIprocedural Use ONLY ONE (09:10)
[2018-07-09] MEDS ORDERED: fentaNYL Citrate Inj 100 MCG/2 ML Ampul ONE (09:14)
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
[2018-07-09] MEDS: ceFAZolin 2 GM Premix Inj 2 GM/100 ML BAG IV.SIG SCH (16:23)
[2018-07-09] MEDS: Enoxaparin Inj 40 MG/0.4 ML Syringe SQ SCH (20:28)
[2018-07-10] MEDS: ceFAZolin 2 GM Premix Inj 2 GM/100 ML BAG IV.SIG SCH ×3 (02:28→16:42)
[2018-07-10 06:38] LABS: Hematocrit 29.3 % (39.0-51.0); Hemoglobin 10.2 gm/dL (13.0-17.0)
--- NOTE | 2018-07-10 06:42 | P.PNOP ---
Subjective Interval history: POD 1 s/p I&D and wound closure left thigh doing well. pain controlled. Physical Exam Vital signs: Vital Signs 07/09/18 09:06 07/09/18 09:15 07/09/18 09:30 Temperature 97.5 F L Pulse Rate 104 H 84 87 Respiratory Rate 18 18 18 Blood Pressure 127/89 136/87 133/84 Pulse Oximetry 100 99 99 07/09/18 09:45 07/09/18 10:15 07/09/18 11:18 Temperature 97.7 F Pulse Rate 64 59 L Respiratory Rate 18 20 16 Blood Pressure 125/73 124/67 Pulse Oximetry 99 98 07/09/18 12:00 07/09/18 16:00 07/09/18 20:00 Temperature 97.7 F 97.8 F 97.6 F Pulse Rate 83 106 H 113 H Respiratory Rate 16 16 18 Blood Pressure 141/65 H 142/69 H 133/60 Pulse Oximetry 97 97 96 07/10/18 00:00 07/10/18 04:00 Temperature 97.7 F Pulse Rate 82 Respiratory Rate 18 18 Blood Pressure 138/65 Pulse Oximetry 96 Intake & Output 07/09/18 07/09/18 07/10/18 06:59 18:59 06:59 Intake Total 1000 / 1000 1370 / 1370 100 / 100 Output Total 1325 / 1325 Balance 1000 / 1000 45 / 45 100 / 100 Weight 72.5 kg 72.5 kg Intake: IV 1000 / 1000 150 / 150 100 / 100 LR 1000 mL Inj 1,000 ML @ 100 1000 / 1000 mls/hr IV.CONT .Q10H [facility] Rx#: [id number] Ancef 2 GM Premix Inj 2 gm In 100 / 100 100 / 100 100 ml @ 200 mls/hr IV.SIG Q8H [facility] Rx#:[id number] Ancef 2 GM Premix Inj 2 gm In 50 / 50 50 ml @ 0 mls/hr IV.SIG .STK- [facility] Rx#:[id number] Oral 720 / 720 Anesthesia Amount 500 / 500 Output: Estimated Blood Loss 25 / 25 Urine Amount (Catheter) 1300 / 1300 Indwelling Urethral Catheter 1300 / 1300 Other: Mode Setting Left Thigh Continuous Intermittent Intermittent Date of Last Bowel Movement 07/04/18 07/04/18 07/09/18 Narrative: LLE: dressings clean and dry. intact. NVI. +vac. good seal - Urinary Catheter Management Indwelling Urethral Catheter Cath placed during this visit: yes Reason for continuing: Hourly intake/output Insertion date: 07/05/18 Insertion time: 17:00 Results - Labs CBC & Chem 7: 07/10/18 05:40 07/09/18 04:04 Laboratory Results - last 24 hr 07/10/18 05:40 Hgb 10.2 L Hct 29.3 L Assessment and Plan - Problem List (1) Laceration Status: Acute (2) Fracture of hand Code(s): S62.90XA - Unspecified fracture of unspecified wrist and hand, initial encounter for closed fracture Status: Acute Qualifiers: Encounter type: initial encounter Fracture type: open Laterality: left Qualified Code(s): S62.92XB - Unspecified fracture of left wrist and hand, initial encounter for open fracture (3) Amputation of left ring finger Code(s): S68.115A - Complete traumatic metacarpophalangeal amputation of left ring finger, initial encounter Status: Acute (4) Closed fracture of proximal phalanx of left ring finger Code(s): S62.615A - Displaced fracture of proximal phalanx of left ring finger, initial encounter for closed fracture Status: Acute Qualifiers: Encounter type: initial encounter Fracture alignment: nondisplaced Qualified Code(s): S62.645A - Nondisplaced fracture of proximal phalanx of left ring finger, initial encounter for closed fracture (5) Displaced fracture of shaft of fourth metacarpal bone, left hand, initial encounter for closed fracture Code(s): S62.325A - Displaced fracture of shaft of fourth metacarpal bone, left hand, initial encounter for closed fracture Status: Acute (6) Displaced fracture of neck of fifth metacarpal bone, left hand, initial encounter for closed fracture Code(s): S62.337A - Displaced fracture of neck of fifth metacarpal bone, left hand, initial encounter for closed fracture Status: Acute - Assessment and Plan 1) traumatic Left Thigh Laceration s/p I&D with wound closure and incisional vac application - POD#1 -WBAT -maintain vac -plan for vac to remain x 4-5 days then remove at bedside. ortho team will do this. -assuming wound is healing well, will be cleared for DC at that point. -will continue to monitor Father that was here yesterday flew back to [place], mother coming in today- lives in [place] Orthopedically stable
[2018-07-10] MEDS: Senna/Docusate Sodium 8.6/50 MG Tablet PO SCH ×2 (09:32→20:29)
[2018-07-10] MEDS: Gabapentin 100 MG Capsule PO SCH ×3 (09:32→17:22)
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
[2018-07-10] MEDS: Enoxaparin Inj 40 MG/0.4 ML Syringe SQ SCH (20:30)
[2018-07-10] MEDS: ceFAZolin 2 GM Premix Inj 2 GM/50 ML PIGGYBACK IV.SIG SCH (23:56)
--- NOTE | 2018-07-11 06:36 | P.PNOP ---
Subjective Interval history: POD 2 s/p I&D and wound closure with incisional vac application left thigh doing well. improving Physical Exam Vital signs: Vital Signs 07/10/18 08:00 07/10/18 12:00 07/10/18 16:00 Temperature 97.5 F L 98.2 F 98.9 F Pulse Rate 71 96 H 105 H Respiratory Rate 18 19 19 Blood Pressure 131/60 129/59 L 143/63 H Pulse Oximetry 99 97 97 07/10/18 20:00 07/11/18 00:00 07/11/18 04:00 Temperature 97.8 F 98.8 F Pulse Rate 112 H 99 H Respiratory Rate 17 16 18 Blood Pressure 135/63 135/60 Pulse Oximetry 99 100 Intake & Output 07/10/18 07/10/18 07/11/18 06:59 18:59 06:59 Intake Total 100 / 100 680 / 680 1050 / 1050 Output Total 1000 / 1000 0 / 0 Balance 100 / 100 -320 / -320 1050 / 1050 Weight 72.5 kg 72.5 kg Intake: IV 100 / 100 200 / 200 1050 / 1050 Ancef 2 GM Premix Inj 2 gm In 100 / 100 200 / 200 100 ml @ 200 mls/hr IV.SIG Q8H ABILIO Rx#:[id number] Ancef 2 GM Premix Inj 2 gm In 50 / 50 50 ml @ 100 mls/hr IV.SIG Q8H ABILIO Rx#:[id number] Oral 480 / 480 Output: Urine 300 / 300 Urine Amount (Catheter) 700 / 700 Indwelling Urethral Catheter 700 / 700 Wound Vac Amount 0 / 0 Left Thigh 0 / 0 Other: Mode Setting Left Thigh Intermittent Continuous Intermittent # Voids 1 Date of Last Bowel Movement 07/09/18 07/09/18 07/09/18 Narrative: LLE: +vac. good seal. nvi distally - Urinary Catheter Management Indwelling Urethral Catheter Cath placed during this visit: yes, but has since been removed by the nurse Reason for continuing: Decision to DC catheter Insertion date: 07/05/18 Insertion time: 17:00 Removal date: 07/10/18 Removal time: 09:45 Results - Labs CBC & Chem 7: 07/10/18 05:40 07/09/18 04:04 Laboratory Results - last 24 hr 07/10/18 05:40 Hgb 10.2 L Hct 29.3 L Assessment and Plan - Problem List (1) Laceration Status: Acute (2) Fracture of hand Code(s): S62.90XA - Unspecified fracture of unspecified wrist and hand, initial encounter for closed fracture Status: Acute Qualifiers: Encounter type: initial encounter Fracture type: open Laterality: left Qualified Code(s): S62.92XB - Unspecified fracture of left wrist and hand, initial encounter for open fracture (3) Amputation of left ring finger Code(s): S68.115A - Complete traumatic metacarpophalangeal amputation of left ring finger, initial encounter Status: Acute (4) Closed fracture of proximal phalanx of left ring finger Code(s): S62.615A - Displaced fracture of proximal phalanx of left ring finger, initial encounter for closed fracture Status: Acute Qualifiers: Encounter type: initial encounter Fracture alignment: nondisplaced Qualified Code(s): S62.645A - Nondisplaced fracture of proximal phalanx of left ring finger, initial encounter for closed fracture (5) Displaced fracture of shaft of fourth metacarpal bone, left hand, initial encounter for closed fracture Code(s): S62.325A - Displaced fracture of shaft of fourth metacarpal bone, left hand, initial encounter for closed fracture Status: Acute (6) Displaced fracture of neck of fifth metacarpal bone, left hand, initial encounter for closed fracture Code(s): S62.337A - Displaced fracture of neck of fifth metacarpal bone, left hand, initial encounter for closed fracture Status: Acute - Assessment and Plan 1) traumatic Left Thigh Laceration s/p I&D with wound closure and incisional vac application - POD#2 -WBAT -maintain vac -plan for vac to remain x 4-5 days then remove at bedside. ortho team will do this. potentially /monday. -assuming wound is healing well, will be cleared for DC at that point. -will continue to monitor Father that was here yesterday flew back to [place], mother coming in today- lives in [place] Orthopedically stable
[2018-07-11] MEDS: Senna/Docusate Sodium 8.6/50 MG Tablet PO SCH ×2 (08:27→21:20)
[2018-07-11] MEDS: Gabapentin 100 MG Capsule PO SCH ×3 (08:27→19:18)
[2018-07-11] MEDS: ceFAZolin 2 GM Premix Inj 2 GM/50 ML PIGGYBACK IV.SIG SCH (08:30)
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
[2018-07-11] MEDS: Enoxaparin Inj 40 MG/0.4 ML Syringe SQ SCH (21:19)
--- NOTE | 2018-07-12 06:47 | P.PNOP ---
Subjective Interval history: POD 3 s/p I&D wound closure left thigh doing well. improving Physical Exam Vital signs: Vital Signs 07/11/18 08:00 07/11/18 12:00 07/11/18 16:00 Temperature 98.1 F 98.2 F 98.5 F Pulse Rate 101 H 80 105 H Respiratory Rate 17 18 18 Blood Pressure 121/63 110/57 L 125/58 L Pulse Oximetry 98 99 98 07/11/18 20:00 07/11/18 23:43 07/12/18 00:00 Temperature 99.2 F 98.1 F Pulse Rate 104 H 114 H Respiratory Rate 17 16 15 Blood Pressure 136/58 L 119/62 Pulse Oximetry 100 100 07/12/18 04:00 Temperature Pulse Rate Respiratory Rate 16 Blood Pressure Pulse Oximetry Intake & Output 07/11/18 07/11/18 07/12/18 06:59 18:59 06:59 Intake Total 1050 / 1050 1150 / 1150 240 / 240 Output Total 0 / 0 450 / 450 1150 / 1150 Balance 1050 / 1050 700 / 700 -910 / -910 Weight 72.5 kg 72.5 kg Intake: IV 1050 / 1050 50 / 50 Ancef 2 GM Premix Inj 2 gm In 50 / 50 50 / 50 50 ml @ 100 mls/hr IV.SIG Q8H ABILIO Rx#:[id number] Oral 1100 / 1100 240 / 240 Output: Urine 450 / 450 1150 / 1150 Wound Vac Amount 0 / 0 Left Thigh 0 / 0 Other: Mode Setting Left Thigh Intermittent Continuous Continuous # Voids 2 Date of Last Bowel Movement 07/09/18 07/09/18 07/11/18 # Bowel Movements 2 Narrative: LLE: wound vac removed. incision visualized. healing well. skin healthy. no drainage. minimal swelling. no erythema - Urinary Catheter Management Indwelling Urethral Catheter Cath placed during this visit: yes, but has since been removed by the nurse Reason for continuing: Hourly intake/output Insertion date: 07/05/18 Insertion time: 17:00 Removal date: 07/10/18 Removal time: 09:45 Results - Labs CBC & Chem 7: 07/10/18 05:40 07/09/18 04:04 Assessment and Plan - Problem List (1) Laceration Status: Acute (2) Fracture of hand Code(s): S62.90XA - Unspecified fracture of unspecified wrist and hand, initial encounter for closed fracture Status: Acute Qualifiers: Encounter type: initial encounter Fracture type: open Laterality: left Qualified Code(s): S62.92XB - Unspecified fracture of left wrist and hand, initial encounter for open fracture (3) Amputation of left ring finger Code(s): S68.115A - Complete traumatic metacarpophalangeal amputation of left ring finger, initial encounter Status: Acute (4) Closed fracture of proximal phalanx of left ring finger Code(s): S62.615A - Displaced fracture of proximal phalanx of left ring finger, initial encounter for closed fracture Status: Acute Qualifiers: Encounter type: initial encounter Fracture alignment: nondisplaced Qualified Code(s): S62.645A - Nondisplaced fracture of proximal phalanx of left ring finger, initial encounter for closed fracture (5) Displaced fracture of shaft of fourth metacarpal bone, left hand, initial encounter for closed fracture Code(s): S62.325A - Displaced fracture of shaft of fourth metacarpal bone, left hand, initial encounter for closed fracture Status: Acute (6) Displaced fracture of neck of fifth metacarpal bone, left hand, initial encounter for closed fracture Code(s): S62.337A - Displaced fracture of neck of fifth metacarpal bone, left hand, initial encounter for closed fracture Status: Acute - Assessment and Plan 1) traumatic Left Thigh Laceration s/p I&D with wound closure and incisional vac application - POD#3 -WBAT -vac removed today at bedside -begin daily dressing changes with xeroform/primapore. if primapore not doable, then 4x4/tape or chrissy wrap. whichever is comfortable for patient -ortho clear for discharge -f/u with jenny or [facility] in 2 weeks for wound check E-FORE Prescription Drug Monitoring Database has been queried and verified prior to prescribing the controlled substance. Acute pain exception. This patient has normal, predicted, physiological, and time limited response to an adverse mechanical stimulus associated with surgery, trauma, or acute illness as described in my notes. There is a lack of alternative treatment options other than to include the prescribed narcotic treatment for this condition.
[2018-07-12] MEDS: Senna/Docusate Sodium 8.6/50 MG Tablet PO SCH ×2 (10:05→22:11)
[2018-07-12] MEDS: Gabapentin 100 MG Capsule PO SCH ×3 (10:05→17:59)
[2018-07-12] MEDS ORDERED: Morphine Inj 4 MG/ML Vial IV.PUSH PRN (11:53)
--- NOTE | 2018-07-12 11:58 | P.OP ---
- Preoperative Diagnosis (1) Abscess of right upper arm and forearm Date of procedure: 07/12/18 Procedure: Irrigation and debridement of right arm abscess Anesthesia: GETA Surgeon: Shemar Garcia MD Operation and Findings: Fernando has a 1 week history of right elbow pain and swelling. MRI revealed a large fluid collection around the elbow extending to the arm and forearm. Informed consent was confirmed and OpSite was marked. He is brought to operating room. Is given IV sedation and general anesthesia. He was placed in lateral decubitus position. Right arm was prepped with alcohol followed Hibiclens and draped in usual sterile fashion. Timeout procedure was performed. Patient is already on scheduled antibiotics. Procedure began with a 4 inch incision over the fluctuant area of the elbow. Patient had a small wound which was draining purulent fluid. Cultures were obtained from tissue. The abscess was now thoroughly debrided. An excisional debridement was performed. Curettes and rongeurs were used to debride infected tissue. The wound was now thoroughly irrigated with pulsatile lavage. The wound was now cleaned. Subcu tissues were approximated with 3-0 PDS. Skin was loosely closed with 3-0 nylon. A Phan drain was placed deep. Sterile dressings were applied. Patient was awakened and transferred to recovery room in stable condition.
--- NOTE | 2018-07-12 13:08 | P.PN ---
Subjective Interval history: left hand fracture follow up minimal pain no numbness Physical Exam Vital signs: Vital Signs 07/11/18 16:00 07/11/18 20:00 07/11/18 23:43 Temperature 98.5 F 99.2 F 98.1 F Pulse Rate 105 H 104 H 114 H Respiratory Rate 18 17 16 Blood Pressure 125/58 L 136/58 L 119/62 Pulse Oximetry 98 100 100 07/12/18 00:00 07/12/18 04:00 07/12/18 08:00 Temperature 97.9 F Pulse Rate 97 H Respiratory Rate 15 16 16 Blood Pressure 122/75 Pulse Oximetry 93 L 07/12/18 12:00 Temperature 97.6 F Pulse Rate 113 H Respiratory Rate 18 Blood Pressure 140/62 Pulse Oximetry 99 Intake & Output 07/11/18 07/12/18 07/12/18 18:59 06:59 18:59 Intake Total 1150 / 1150 240 / 240 Output Total 450 / 450 1150 / 1150 Balance 700 / 700 -910 / -910 Weight 72.5 kg Intake: IV 50 / 50 Ancef 2 GM Premix Inj 2 gm In 50 / 50 50 ml @ 100 mls/hr IV.SIG Q8H ABILIO Rx#:[id number] Oral 1100 / 1100 240 / 240 Output: Urine 450 / 450 1150 / 1150 Other: Mode Setting Left Thigh Continuous Continuous # Voids 2 Date of Last Bowel Movement 07/09/18 07/11/18 07/11/18 # Bowel Movements 2 Narrative: left hand: intact splint and dressing decreased swelling intact circulation k wire pin tract site clean and dry - Urinary Catheter Management Indwelling Urethral Catheter Cath placed during this visit: yes, but has since been removed by the nurse Reason for continuing: Decision to DC catheter Insertion date: 07/05/18 Insertion time: 17:00 Removal date: 07/10/18 Removal time: 09:45 Results - Labs CBC & Chem 7: 07/10/18 05:40 07/09/18 04:04 Assessment and Plan - Assessment (1) Amputation of left ring finger Code(s): S68.115A - Complete traumatic metacarpophalangeal amputation of left ring finger, initial encounter Status: Acute Plan: surrounding skin is cleaned with alcohol wipes adaptic and dry dressing applied well padded volar and dorsal ulnar gutter splint applied keeping the MP joint in flexion and PIP joints in extension continue with limb elevation nonweight bearing left hand and wrist cleared for discharge from hand surgery follow up in office in one week time for suture removal plan for k-wire removal in 3-4 weeks time from surgery (2) Displaced fracture of shaft of fourth metacarpal bone, left hand, initial encounter for closed fracture Code(s): S62.325A - Displaced fracture of shaft of fourth metacarpal bone, left hand, initial encounter for closed fracture Status: Acute (3) Displaced fracture of neck of fifth metacarpal bone, left hand, initial encounter for closed fracture Code(s): S62.337A - Displaced fracture of neck of fifth metacarpal bone, left hand, initial encounter for closed fracture Status: Acute - Plan 22 year old male s/p revision amputation left ring finger, CRIF proximal phalanx left ring finger, ORIF 4th metacarpal shaft fracture, CRIF fifth metacarpal neck left hand Plan: continue with strict limb elevation can move his thumb, index and middle fingers watch for compartment syndrome, had a discussion with nurse will change dressing tomorrow.
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
[2018-07-12] MEDS: Enoxaparin Inj 40 MG/0.4 ML Syringe SQ SCH (22:08)
[2018-07-13 00:08] VITALS: RESP 18
--- NOTE | 2018-07-13 06:36 | P.PNOP ---
Subjective Interval history: POD 3 s/p I&D and wound closure left thigh doing well. improving. out of bed on own Physical Exam Vital signs: Vital Signs 07/12/18 08:00 07/12/18 12:00 07/12/18 16:00 Temperature 97.9 F 97.6 F 98.1 F Pulse Rate 97 H 113 H 110 H Respiratory Rate 16 18 18 Blood Pressure 122/75 140/62 103/57 L Pulse Oximetry 93 L 99 96 07/12/18 20:00 07/13/18 00:00 Temperature 99.2 F 98.7 F Pulse Rate 110 H 124 H Respiratory Rate 20 18 Blood Pressure 121/59 L 129/72 Pulse Oximetry 100 96 Intake & Output 07/12/18 07/12/18 07/13/18 06:59 18:59 06:59 Intake Total 240 / 240 Output Total 1150 / 1150 Balance -910 / -910 Weight 72.5 kg Intake: Oral 240 / 240 Output: Urine 1150 / 1150 Other: Mode Setting Left Thigh Continuous Date of Last Bowel Movement 07/11/18 07/11/18 07/11/18 Narrative: LLE: dressings clean and dry. intact. NVI - Urinary Catheter Management Indwelling Urethral Catheter Cath placed during this visit: yes, but has since been removed by the nurse Reason for continuing: Decision to DC catheter Insertion date: 07/05/18 Insertion time: 17:00 Removal date: 07/10/18 Removal time: 09:45 Results - Labs CBC & Chem 7: 07/10/18 05:40 07/09/18 04:04 Assessment and Plan - Problem List (1) Laceration Status: Acute (2) Fracture of hand Code(s): S62.90XA - Unspecified fracture of unspecified wrist and hand, initial encounter for closed fracture Status: Acute Qualifiers: Encounter type: initial encounter Fracture type: open Laterality: left Qualified Code(s): S62.92XB - Unspecified fracture of left wrist and hand, initial encounter for open fracture (3) Amputation of left ring finger Code(s): S68.115A - Complete traumatic metacarpophalangeal amputation of left ring finger, initial encounter Status: Acute (4) Closed fracture of proximal phalanx of left ring finger Code(s): S62.615A - Displaced fracture of proximal phalanx of left ring finger, initial encounter for closed fracture Status: Acute Qualifiers: Encounter type: initial encounter Fracture alignment: nondisplaced Qualified Code(s): S62.645A - Nondisplaced fracture of proximal phalanx of left ring finger, initial encounter for closed fracture (5) Displaced fracture of shaft of fourth metacarpal bone, left hand, initial encounter for closed fracture Code(s): S62.325A - Displaced fracture of shaft of fourth metacarpal bone, left hand, initial encounter for closed fracture Status: Acute (6) Displaced fracture of neck of fifth metacarpal bone, left hand, initial encounter for closed fracture Code(s): S62.337A - Displaced fracture of neck of fifth metacarpal bone, left hand, initial encounter for closed fracture Status: Acute - Assessment and Plan 1) traumatic Left Thigh Laceration s/p I&D with wound closure and incisional vac application - POD#4 -WBAT -vac removed today at bedside -begin daily dressing changes with xeroform/primapore. if primapore not doable, then 4x4/tape or chrissy wrap. whichever is comfortable for patient -ortho clear for discharge -f/u with jenny or [facility] in 2 weeks for wound check [id number] Prescription Drug Monitoring Database has been queried and verified prior to prescribing the controlled substance. Acute pain exception. This patient has normal, predicted, physiological, and time limited response to an adverse mechanical stimulus associated with surgery, trauma, or acute illness as described in my notes. There is a lack of alternative treatment options other than to include the prescribed narcotic treatment for this condition.
[2018-07-13] MEDS: Senna/Docusate Sodium 8.6/50 MG Tablet PO SCH (08:00)
[2018-07-13] MEDS: Gabapentin 100 MG Capsule PO SCH ×2 (08:00→12:27)
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
[2018-07-13 15:09] VITALS: BP 115/58; PULSE 103; TEMP 98.3; O2SAT 95
== END 2018-07-13 13:00 | disposition home health service (06) ==
LOC: NEPI 16:03 → NEDA 17:01 → N06 22:59
PROVIDERS: ADMIT Surgery Trauma Surgery; ATTEND Surgery Trauma Surgery
PROC: ORIFFEM (2018-07-06 12:15)